=== PATIENT | female | born 1945 | race Caucasian/White ===

== ENCOUNTER 2023-07-30 19:29 | Emergency (ER) | payer MEDICARE, MEDICAID, SELFPAY ==
--- NOTE | ~2023-07-30 | XR_ITS ---
EXAMINATION: XR CHEST CLINICAL INFORMATION: Shortness of breath. COMPARISON: None available. TECHNIQUE: PA view of the chest was obtained. FINDINGS: Normal heart size. No focal airspace opacities, pleural effusion or pneumothorax. No acute osseous findings. Visualized upper abdomen is within normal limits. XR/XR chest 1V IMPRESSION: No acute cardiopulmonary findings.
[2023-07-30 19:33] VITALS: BP 190/83; PULSE 81; RESP 18; TEMP 36.5; O2SAT 99; BMI 22.2
--- NOTE | 2023-07-30 19:36 | ECG_ITS ---
Test Reason : SOB Blood Pressure : / mmHG Vent. Rate : 073 BPM Atrial Rate : 073 BPM P-R Int : 154 ms QRS Dur : 076 ms QT Int : 374 ms P-R-T Axes : 046 021 045 degrees QTc Int : 412 ms Normal sinus rhythm Nonspecific ST abnormality Abnormal ECG When compared with ECG of 02-SEP-2004 06:16, ST now depressed in Inferior leads Referred By: Wes Bolden Electronically Signed By:KIRILL MONTOYA MD
--- NOTE | 2023-07-30 19:38 | ED.GENADULT ---
HPI - General Adult General Chief complaint: Dyspnea Stated complaint: labored breathing/lwr back pain History of Present Illness HPI narrative: Left without completion of treatment by ED provider. Related Data Allergies Allergy/AdvReac Type Severity Reaction Status Date / Time erythromycin base Allergy Unknown RASH Unverified 02/25/20 14:54 [ERYTHROMYCIN BASE] Penicillins [PENICILLINS] Allergy Unknown RASH Unverified 02/25/20 14:54 PMF Social History Social History Advance Directives: No Advance Directives Information Provided: No Physical Exam ED Vital Signs: Vital Signs - 24 hr 07/30/23 19:33 Temperature 97.7 F Pulse Rate 81 Respiratory Rate 18 Blood Pressure 190/83 H Pulse Oximetry 99 Oxygen Delivery Method Room Air BMI result Body Mass Index 22.2 Course Course Course Narrative: RME: 78 yold female presents to the ED for SOB since saturday with diarrhea and bodyaches. Patient states her great grandchildren had RSV and flu. Patient lungs are clear. O2 saturation respiratory rate normal. Lungs are clear. Lower extremities negative for swelling or pitting edema or calf pain. X-ray labs are ordered. EkG Ordered Medical Decision Making Lab Data 07/30/23 20:04 07/30/23 20:04 Labs: Lab Results 07/30/23 Range/Units 20:04 WBC 3.9 L (4.8-10.8) X10*3/uL RBC 4.61 (4.20-5.50) X10*6/uL Hgb 14.6 (12.0-16.0) g/dl Hct 44.1 (37.0-47.0) % MCV 95.7 (80.0-98.0) fL MCH 31.7 (27.0-33.0) pg MCHC 33.1 (31.0-35.0) g/dl RDW 12.7 (11.0-16.0) % Plt Count 150 L (160-400) X10*3/uL MPV 9.5 (9.4-12.3) fL Immature Gran % (Auto) 0.3 (0.0-0.4) % Neut % (Auto) 51.5 (45-73) % Lymph % (Auto) 33.5 (20-40) % [place] % (Auto) 12.9 H (2-11) % Eos % (Auto) 1.3 (0-4) % Baso % (Auto) 0.5 (0-2) % Lymph # (Auto) 1.3 (1.2-4.9) X10*3/uL [place] # (Auto) 0.5 (0.1-1.2) X10*3/uL Eos # (Auto) 0.1 (0.0-0.4) X10*3/uL Baso # (Auto) 0.0 (0.0-0.2) X10*3/uL Abs Immat Gran (auto) 0.01 (0.00-0.03) X10*3/uL Absolute Neuts (auto) 2.0 (2.0-8.3) x10*3/uL Absolute Nucleated RBC 0.000 (0.0-0.012) X10*3/uL Nucleated RBC % (auto) 0.0 (0.0-0.2) /100WBC PT 12.0 (11.1-13.3) SEC INR 1.0 (0.9-1.1) APTT 34.9 (26.0-36.8) SEC Sodium 145 (135-145) mmol/L Potassium 3.6 (3.3-5.1) mmol/L Chloride 106 (96-108) mmol/L Carbon Dioxide 27 (22-29) mmol/L Anion Gap 16 (12-20) BUN 18 H (9-16) mg/dL Creatinine 0.76 (0.5-1.4) mg/dL Estim Creat Clear Calc 50.9 Estimated GFR > 60 Random Glucose 92 (60-115) mg/dL Calcium 9.5 (8.4-10.2) mg/dL Total Bilirubin 0.6 (0.0-1.0) mg/dL AST 27 (5-31) U/L ALT 15 (0-31) U/L Alkaline Phosphatase 58 (39-117) U/L Troponin I High Sens < 2.7 (<3.5-17.0) ng/L B-Natriuretic Peptide 44 (<100) pg/mL Total Protein 7.1 (6.5-8.0) g/dL Albumin 4.3 (3.5-5.0) g/dL Influenza Type A (PCR) NEGATIVE (Negative) Influenza Type B (PCR) NEGATIVE (Negative) RSV RNA Qual (PCR) NEGATIVE (Negative) SARS-CoV-2 RNA (RT-PCR) NEGATIVE (Negative) Discharge Plan Discharge Clinical Impression: Dyspnea Patient Disposition: Left W/O Completing Treatment Discharge Date/Time: 07/31/23 01:22
--- NOTE | 2023-07-30 19:43 | MHC.EDTECH ---
Unable to do EKG right away they took patient to x-ray
[2023-07-30 20:12] LABS: Basophils Percent Auto 0.5 % (0-2); Eosinophils Absolute Auto 0.1 X10*3/uL (0.0-0.4); Eosinophils Percent Auto 1.3 % (0-4); Hematocrit 44.1 % (37.0-47.0); Hemoglobin 14.6 g/dl (12.0-16.0); Imm Gran Abs Auto 0.01 X10*3/uL (0.00-0.03); Imm Gran Pct Auto 0.3 % (0.0-0.4); Lymphocytes Absolute Auto 1.3 X10*3/uL (1.2-4.9); Lymphocytes Percent Auto 33.5 % (20-40); MANUAL DIFF FLAG NO; Mean Corpuscular HGB Conc 33.1 g/dl (31.0-35.0); Mean Corpuscular Hemoglobin 31.7 pg (27.0-33.0); Mean Corpuscular Volume 95.7 fL (80.0-98.0); Mean Platelet Volume 9.5 fL (9.4-12.3); Monocytes Absolute Auto 0.5 X10*3/uL (0.1-1.2); Monocytes Percent Auto 12.9 % (2-11); Neutrophils Percent Auto 51.5 % (45-73); Platelet Count 150 X10*3/uL (160-400); Red Blood Count 4.61 X10*6/uL (4.20-5.50); Red Cell Distribution Width 12.7 % (11.0-16.0); White Blood Count 3.9 X10*3/uL (4.8-10.8)
[2023-07-30 20:22] LABS: Partial Thromboplastin Time 34.9 SEC (26.0-36.8)
[2023-07-30 20:30] LABS: Alanine Aminotransferase 15 U/L (0-31); Albumin Level 4.3 g/dL (3.5-5.0); Alkaline Phosphatase 58 U/L (39-117); Anion Gap 16 (12-20); Aspartate Amino Transferase 27 U/L (5-31); Bilirubin Total 0.6 mg/dL (0.0-1.0); Blood Urea Nitrogen 18 mg/dL (9-16); Calcium 9.5 mg/dL (8.4-10.2); Carbon Dioxide 27 mmol/L (22-29); Chloride 106 mmol/L (96-108); Creatinine Clr Calc Pharmacy 50.9; Estimated Glomerular Filt Rate > 60; Glucose Random 92 mg/dL (60-115); Potassium 3.6 mmol/L (3.3-5.1); Sodium 145 mmol/L (135-145); Total Protein 7.1 g/dL (6.5-8.0)
[2023-07-30 20:36] LABS: B Type Natriuretic Peptide 44 pg/mL (<100)
[2023-07-30 20:38] LABS: Troponin-I High Sensitivity < 2.7 ng/L (<3.5-17.0)
[2023-07-30 20:52] LABS: Influenza A PCR NEGATIVE (Negative); Influenza B PCR NEGATIVE (Negative); Resp Syncy Virus RNA Qual PCR NEGATIVE (Negative); SARS COV2 PCR INHOUSE NEGATIVE (Negative)
== END 2023-07-31 01:22 | disposition left against medical advice (07) ==
PROVIDERS: Physician Assistant; Emergency Provider Emergency Medicine
DX: R06.00 Dyspnea, unspecified (principal); R94.31 Abnormal electrocardiogram [ECG] [EKG]; M54.50 Low back pain, unspecified; Z20.822 Contact with and (suspected) exposure to COVID-19; Z11.52 Encounter for screening for COVID-19; Z79.899 Other long term (current) drug therapy
CPT/HCPCS: 0241U; 71045; 80053; 83880; 84484; 85025; 85610; 85730; 93005; 99283

== ENCOUNTER → 2023-07-30 19:36 | Outpatient (BNV) | payer MEDICARE, MEDICAID, SELFPAY | PROVIDERS: Emergency Provider Emergency Medicine; Visit Provider Internal Medicine Cardiovascular Disease | DX: R94.31 Abnormal electrocardiogram [ECG] [EKG] (principal) | CPT/HCPCS: 93010 ==

== ENCOUNTER 2023-11-12 08:48 | Outpatient (AMB) | payer MEDICARE, MEDICAID, SELFPAY ==
[2023-11-12 09:49] VITALS: BP 130/80; PULSE 69; TEMP 36.6; O2SAT 97; BMI 22.3
--- NOTE | 2023-11-12 09:49 | AM.OFFWIN_ITS ---
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 Allergies erythromycin base [ERYTHROMYCIN BASE] Allergy (Unknown, Verified 11/12/23 09:49) RASH Penicillins [PENICILLINS] Allergy (Unknown, Verified 11/12/23 09:49) RASH Do you need a note to return to daycare/school/sports/work: No HPI HPI Comments History of Present Illness Details This is an 78-year-old female presenting for evaluation of a right foot injury. Patient was at [employer] preparing food when a very large can of green beans fell from counter height onto her right foot. Patient has a laceration on her right 2nd toe. Patient is unaware of her most recent tetanus immunization. Review of Systems Const All systems reviewed & are unremarkable except as noted in HPI and below Eyes Reports no additional complaints ENT Reports no additional complaints Card Reports no additional complaints GI Reports no additional complaints Reports no additional complaints Musc Reports no additional complaints Skin/Breast Reports as per HPI and Reports bleeding lesions Neuro Reports no additional complaints Psych Reports no additional complaints Endo Reports no additional complaints Santi/Lymph Reports no additional complaints Aller/Immun Reports no additional complaints Physical Exam Vital Signs: Last Vital Signs Temp 97.9 F 11/12/23 09:49 Pulse 69 11/12/23 09:49 BP 130/80 11/12/23 09:49 Pulse Ox 97 11/12/23 09:49 Oxygen Delivery Method Room Air 11/12/23 09:49 BMI result Body Mass Index 22.3 Const General: cooperative, healthy appearing, comfortable, no acute distress, well developed, alert, awake and Physically active Nutritional Appearance: average body habitus Orientation/consciousness: patient oriented x3 Limitations: no limitations Skin Other: 1.5cm crescent shaped flap laceration adjacent to the nailbed of the right 2nd toe; no involvement of the nail. Neuro General: patient oriented x3 Extrem Right lower extremity: foot (moving all digits of R. foot without limitation) Details: normal capillary refill (not possible to assess secondary to nail mosotho) and tenderness (right 2nd toe, distal phalanx) Psych Appearance: grossly normal Mental Status: mental status grossly normal Insight: Good insight present (Psych) Judgement: Good judgement present (Psych) Office Procedures Laceration Repair Details: laceration right 2nd toe distal phalanx; no evidence of a retained foreign body Laceration repair performed by: Amita Kerns Explained risks and benefits to parent: Yes Informed consent given: Yes Consent signed: No Location: Right 2nd toe Length: <2cm Sedation: No Anesthesia: 2% lidocaine Irrigation: saline Preparation: betadine Wound exploration: none (no foreign body noted, no involvement of the nail of the R. 2nd toe) Deep closure: No Skin closure: nylon Technique: A total of 7 simple interrupted 6-0 Prolene sutures are placed Topical treatment: triple antibiotic Tetanus toxoid ordered: Yes Patient tolerated procedure: well [place] [id number] Repair <2.5cm Procedure code (CPT) selection complete Results Reviewed Results Reviewed: No acute fracture noted in the right 2nd toe. Assessment & Plan Assessment & Plan (1) Laceration of toe, right: Code(s): S91.119A - Laceration without foreign body of unspecified toe without damage to nail, initial encounter Plan: Update tetanus immunization, imaging of the right foot, sutures Plan Patient has an appointment on November 18 with her surgeon to have previously placed sutures removed from her leg and she will have sutures removed at that time from her right 2nd toe. Suture care is reviewed with the patient. Tylenol for discomfort. No acute fractures noted on imaging. Orders: Orders TDaP Immunization 11/12/23 S91.119A - Laceration without foreign body of unspecified toe without damage to nail, initial encounter Coding Level of Care Code New Pt Level 4 (93970) Diagnoses Laceration of toe, right S91.119A Time Spent (min) 45
== END 2023-11-12 11:19 | disposition home or self-care (01) ==
PROVIDERS: Visit Provider Physician Assistant
DX: S91.114A Laceration without foreign body of right lesser toe(s) without damage to nail, initial encounter (principal)
CPT/HCPCS: 12001; 90471; 90715; 99204

== ENCOUNTER 2023-11-12 10:49 | Outpatient (REF) | payer MEDICARE, SELFPAY ==
--- NOTE | ~2023-11-12 | XR_ITS ---
EXAMINATION: XR FOOT, RIGHT CLINICAL INFORMATION: Laceration without foreign body of unspecified toe. COMPARISON: None available. TECHNIQUE: AP, lateral, and oblique views of the right foot. FINDINGS: The bones are diffusely demineralized. Moderate degenerative changes in the first metatarsophalangeal joint with joint space narrowing and hypertrophic change. Metatarsus adductus, hallux valgus with medial soft tissue bunion. Tiny plantar calcaneal spur. Vascular calcifications. Radiopaque marker placed by technologist to indicate the area of concern as indicated by the patient at the tip of the second toe. No displaced fracture of the second toe appreciated. Mild degenerative changes in the IP joints of the toes. XR/XR foot RT min 3V IMPRESSION: Mild degenerative changes in the IP joints of the toes. No displaced fracture of the second toe appreciated. No radiopaque foreign body appreciated in the area of concern indicated at the tip of the second toe. This study was presented today, November 12, 2023, for interpretation. Stat results provided at this time as requested by referring provider.
== END 2023-11-12 10:50 | disposition home or self-care (01) ==
LOC: HO.HMGCX 10:49
PROVIDERS: PCP Internal Medicine; Visit Provider Physician Assistant
DX: S91.111D Laceration without foreign body of right great toe without damage to nail, subsequent encounter (principal)
CPT/HCPCS: 73630

== ENCOUNTER 2023-11-20 11:25 | Outpatient (AMB) | payer MEDICARE, SELFPAY ==
[2023-11-20 11:28] VITALS: BP 126/60; PULSE 75; TEMP 36.5; O2SAT 98; BMI 22.5
--- NOTE | 2023-11-20 11:28 | MHC.OFFWIV ---
Intake Vital Signs 11/20/23 11:28 Height 5 ft 4 in Weight 131 lb BMI 22.5 BP 126/60 Blood Pressure Location Lt brachial Position Sitting Pulse 75 Pulse Source Pulse Oximeter Temp 97.7 F Temp Source Temporal Artery Scan Pulse Oximetry (%) 98 Oxygen Delivery Method Room Air Intake Visit Reasons: EP removal of stitches Intake Note: pt is here today for stitches removal Patient Tobacco Use Status: Never used Tobacco Allergies erythromycin base [ERYTHROMYCIN BASE] Allergy (Unknown, Verified 11/20/23 11:32) RASH Penicillins [PENICILLINS] Allergy (Unknown, Verified 11/20/23 11:32) RASH Do you need a note to return to daycare/school/sports/work: No HPI HPI Comments History of Present Illness Details Patient seen on 11/11 for laceration to R 2nd digit on foot Negative xray of foot She has some yellow drainage from area No pain scale given No fever or chills Reports for suture removal and wound check No other complaints PFSH Social History Patient Tobacco Use Status: Never used Tobacco Review of Systems Const Denies chills and Denies fever(s) Skin/Breast Reports erythema and Reports wounds Physical Exam Vital Signs: Last Vital Signs Temp 97.7 F 11/20/23 11:28 Pulse 75 11/20/23 11:28 BP 126/60 11/20/23 11:28 Pulse Ox 98 11/20/23 11:28 Oxygen Delivery Method Room Air 11/20/23 11:28 BMI result Body Mass Index 22.5 General: Non-toxic, NAD. Speaking full sentences. Skin: Warm dry throughout. R 2nd digit: + [address] No wound dehiscence. + surrounding erythema and small amount of yellow discharge cleaned from wound. Minimal tenderness to palpation. Nail intact to nailbed. Eye: EOMI Respiratory: No respiratory distress MSK: + ROM lower extremities. Full ROM extremities. Neurology: A/O No aphasia or facial droop. Psych: Good mood and affect Assessment & Plan Assessment & Plan (1) Visit for suture removal: Code(s): Z48.02 - Encounter for removal of sutures Plan: Verbal consent obtained. Tweezers and scissors used to remove the most distal 4 sutures. I left 3 remaining sutures because wound not completely healed and concerned for wound dehiscence. Pt tolerated well and had no questions. Topical bactroban and bandage applied (2) Cellulitis, toe: Code(s): L03.039 - Cellulitis of unspecified toe Qualifiers: Laterality: right Qualified Code(s): L03.031 - Cellulitis of right toe Plan: + erythema and edema to R 2nd digit around wound. Pt would benefit from doxy to ensure better wound healing. Will return on Saturday afternoon/Saturday for recheck and remainign suture removal All questions answered at time of discharge Medications: New doxycycline hyclate stay out of the sun while on medication 100 mg PO BID 14 caps 0RF Coding Level of Care Code Est Pt Level 3 (43954) Diagnoses Visit for suture removal Z48.02 Cellulitis of toe of right foot L03.031 Laterality: right
== END 2023-11-20 12:49 | disposition home or self-care (01) ==
PROVIDERS: PCP Internal Medicine; Visit Provider Physician Assistant
DX: L03.031 Cellulitis of right toe (principal); Z48.02 Encounter for removal of sutures
CPT/HCPCS: 15853; 99213

== ENCOUNTER 2023-11-25 11:24 | Outpatient (AMB) | payer MEDICARE, SELFPAY ==
[2023-11-25 11:37] VITALS: BP 120/76; PULSE 79; TEMP 36.6; O2SAT 99; BMI 22.8
--- NOTE | 2023-11-25 11:37 | AM.OFFWIN_ITS ---
Intake Vital Signs 11/25/23 11:37 Height 5 ft 4 in Weight 133 lb BMI 22.8 BP 120/76 Blood Pressure Location Lt brachial Position Sitting Pulse 79 Pulse Source Pulse Oximeter Temp 97.8 F Temp Source Temporal Artery Scan Pulse Oximetry (%) 99 Oxygen Delivery Method Room Air Intake Visit Reasons: EP removal of stitches Intake Note: pt is here today for stitches removal Patient Tobacco Use Status: Former Tobacco user Allergies erythromycin base [ERYTHROMYCIN BASE] Allergy (Unknown, Verified 11/25/23 11:41) RASH Penicillins [PENICILLINS] Allergy (Unknown, Verified 11/25/23 11:41) RASH Do you need a note to return to daycare/school/sports/work: No HPI HPI Comments History of Present Illness Details Patient presents to the walk-in today for sick visit Seen on 11/11 for laceration to R 2nd digit on foot Returns for wound check and suture removal 11/19 4 sutures were removed, she was advised to return today for removal of the remaining 3 Denies fevers, pain, discharge from the area [facility] Social History Patient Tobacco Use Status: Former Tobacco user Review of Systems Const All systems reviewed & are unremarkable except as noted in HPI and below Physical Exam Vital Signs: Last Vital Signs Temp 97.8 F 11/25/23 11:37 Pulse 79 11/25/23 11:37 BP 120/76 11/25/23 11:37 Pulse Ox 99 11/25/23 11:37 Oxygen Delivery Method Room Air 11/25/23 11:37 BMI result Body Mass Index 22.8 General: awake, alert, oriented. Answers questions appropriately. Fully engaged in examination. Skin: Warm dry throughout. Right 2nd toe: [address] Nail intact to nailbed. No drainage, lymphangitis, bleeding. No signs local or systemic infection Eye: EOMI HEENT: Normocephalic. Hearing intact. Cardiac: External chest normal in appearance. Respiratory: No cough, audible wheezing or stridor. Abdomen: without gross distension. MS: No obvious swelling or deformities. Neurological: Oriented to person, place, time and situation. Thought process intact. No gait abnormalities appreciated. Psychiatric: Appropriate mood and affect. Good judgment and insight. Assessment & Plan Assessment & Plan (1) Visit for suture removal: Code(s): Rosa Maria48.02 - Encounter for removal of sutures Plan Remaining 3 sutures were removed without difficulty. Patient tolerated well No signs of local or systemic infection Wound care instructions provided Follow up with PCP or return here for any new or worsening symptoms Coding Level of Care Code Est Pt Level 3 (08099) Diagnoses Visit for suture removal Z48.02
== END 2023-11-25 12:32 | disposition home or self-care (01) ==
PROVIDERS: PCP Internal Medicine; Visit Provider Registered Nurse Emergency
DX: Z48.02 Encounter for removal of sutures (principal)
CPT/HCPCS: 15853; 99213

== ENCOUNTER 2024-01-18 12:52 | Outpatient (AMB) | payer MEDICARE, SELFPAY ==
--- NOTE | 2024-01-18 12:57 | AM.OFFWIN_ITS ---
Intake Vital Signs 01/18/24 13:05 Height 5 ft 4 in BP 130/74 Blood Pressure Location Rt brachial Position Sitting Pulse 85 Pulse Source Pulse Oximeter Temp 98.0 F Temp Source Temporal Artery Scan Pulse Oximetry (%) 100 Oxygen Delivery Method Room Air Intake Visit Reasons: EP cough 5 days Patient Tobacco Use Status: Former Tobacco user Allergies erythromycin base [ERYTHROMYCIN BASE] Allergy (Unknown, Verified 11/25/23 11:41) RASH Penicillins [PENICILLINS] Allergy (Unknown, Verified 11/25/23 11:41) RASH HPI EP cough 5 days HPI Details Patient is an 78-year-old female comes to the walk-in clinic complaining of persistent cough for the last 5 days, which is worse especially at night, with some mild throat discomfort. She denies fever chills, headache, dizziness or vertigo, weakness, myalgias or malaise, nausea vomiting or diarrhea, significant sore throat, loss of sense of taste or smell, ear pain decreased hearing, shortness breath, chest pain, or other significant associated symptoms. She denies underlying immuno compromising issues. She reports no history of respiratory issues. She did travel recently. No home COVID testing done. [facility] Social History Patient Tobacco Use Status: Former Tobacco user Review of Systems Const All systems reviewed & are unremarkable except as noted in HPI and below Physical Exam Vital Signs: Last Vital Signs Temp 98.0 F 01/18/24 13:05 Pulse 85 01/18/24 13:05 BP 130/74 01/18/24 13:05 Pulse Ox 100 01/18/24 13:05 Oxygen Delivery Method Room Air 01/18/24 13:05 Const General: cooperative, healthy appearing, comfortable, no acute distress, alert, awake, Physically active and well groomed; No anxious, diaphoretic, ill appearing, intoxicated appearing, poor hygiene or tired appearing Nutritional Appearance: average body habitus Orientation/consciousness: oriented to person Limitations: no limitations HEENT Head: Yes normal to inspection, Yes normocephalic and Yes atraumatic Ears: hearing grossly normal bilaterally, external ears normal, EAC's normal and TM abnormal dull, wth effusion, with fluid behind the TM and with loss of landmarks; not bulging, not bullous, not erythematous, not perforated, not retracted and not scarred General nose exam: Normal external nose present and Abnormal mucous membranes and turbinates present Face and sinus: Yes normal facial exam, Yes sinuses nontender and Yes face symmetric Mouth: lip normal, tongue normal and moist mucous membranes abnormal Throat: Yes uvula midline, No peritonsillar mass, Yes postnasal drainage, No uvular edema and No cobblestoning Eyes General: appearance normal, both eyes and all related structures Neck Neck: Yes no lymphadenopathy Chest Chest palpation & inspection: normal palpation of entire chest wall Resp Effort & Inspection: normal respiratory effort, able to speak in complete sentences, no audible wheezes, no cough, no grunting, not labored, no nasal flaring, no retractions and symmetric chest movement Auscultation: clear to auscultation bilaterally, no crackles, no rales, no rhonchi, no wheezes, lung sounds not diminished and No rub present Cardio Rate: regular rate Rhythm: regular rhythm Skin Other: Good color, warm and dry Neuro General: oriented to person Psych Appearance: grossly normal Mental Status: mental status grossly normal Speech and movement: Normal speech and movement present Affect: normal affect Attitude: cooperative Thought process: Normal thought process present Insight: Good insight present (Psych) Judgement: Good judgement present (Psych) Assessment & Plan Assessment & Plan (1) Serous otitis media: Code(s): H65.90 - Unspecified nonsuppurative otitis media, unspecified ear Qualifiers: Chronicity: acute Laterality: bilateral Recurrence: non-recurrent Qualified Code(s): H65.03 - Acute serous otitis media, bilateral Plan: Patient with apparent serous otitis media, causing postnasal drip, and likely the source of her persistent cough, which is especially symptomatic when lying supine at night. As she denies significant allergy history, I think this is likely viral, and I tested her for flu COVID and RSV, pending results. She does not have any pain to the ears, and so I will not treat this as acute otitis media, but rather as likely upper respiratory infection and will trial benzonatate capsules. She can also use [id number] Flonase to help open the Eustachian tubes and assist with the drainage. I told her that this might increase the postnasal drip briefly but should allow for better evacuation of the inner ear fluid. I did also write her for a course of doxycycline as empiric therapy for otitis media, in case symptoms worsen in regards to the ear pain, fever or chills, or other bacterial symptoms. She will follow up if symptoms persist or worsen. She also knows to go to the emergency department with any worrisome symptoms. Orders: Orders SARS-CoV2/FLU/RSV 01/18/24 R09.89 - Other specified symptoms and signs involving the circulatory and respiratory systems Medications: New doxycycline hyclate 100 mg PO BID 7 days 14 tabs 0RF benzonatate 200 mg PO BID-TID PRN 30 caps 0RF cough Coding Level of Care Code Est Pt Level 4 (44600) Diagnoses Non-recurrent acute serous otitis media of both ears H65.03 Chronicity: acute Laterality: bilateral Recurrence: non-recurrent
[2024-01-18 13:05] VITALS: BP 130/74; PULSE 85; TEMP 36.7; O2SAT 100
== END 2024-01-18 14:53 | disposition home or self-care (01) ==
PROVIDERS: PCP Internal Medicine; Visit Provider Physician Assistant Medical
DX: H65.03 Acute serous otitis media, bilateral (principal)
CPT/HCPCS: 99214

== ENCOUNTER 2024-01-18 13:55 | Outpatient (REF) | payer MEDICARE, SELFPAY ==
[2024-01-18 16:48] LABS: Influenza A PCR NEGATIVE (Negative); Influenza B PCR NEGATIVE (Negative); Resp Syncy Virus RNA Qual PCR NEGATIVE (Negative); SARS COV2 PCR INHOUSE NEGATIVE (Negative)
== END 2024-01-18 13:56 | disposition home or self-care (01) ==
LOC: HO.LNP 13:55
PROVIDERS: Visit Provider Physician Assistant Medical
DX: R09.89 Other specified symptoms and signs involving the circulatory and respiratory systems (principal)
CPT/HCPCS: 0241U

== ENCOUNTER 2024-04-18 11:44 | Outpatient (AMB) | payer MEDICARE, SELFPAY ==
--- NOTE | 2024-04-18 11:49 | MHC.OFFWIV ---
Intake Vital Signs 04/18/24 11:55 Height 5 ft 4 in Weight 137 lb BMI 23.5 BP 142/60 H Blood Pressure Location Lt brachial Position Sitting Pulse 79 Pulse Source Pulse Oximeter Temp 97.5 F Temp Source Oral Pulse Oximetry (%) 100 Oxygen Delivery Method Room Air Intake Visit Reasons: EP-B/L hands Rash Intake Note: Pt is here today c/o bilateral hands rash and itchy: x1.5 mo. Patient Tobacco Use Status: Former Tobacco user Allergies erythromycin base [ERYTHROMYCIN BASE] Allergy (Unknown, Verified 04/18/24 12:11) RASH Penicillins [PENICILLINS] Allergy (Unknown, Verified 04/18/24 12:11) RASH Medication List - Last Reconciled 04/18/24 by Carmen Lim, VP OF PRODUCT- citalopram 40 mg PO DAILY lisinopril 20 mg PO DAILY trazodone 100 mg PO BEDTIME PRN HPI HPI Comments History of Present Illness Details Pleasant 78-year-old female here today with complaints of an itchy rash on bilateral hands that developed a few days ago. Reports that she was working out in the [employer], wearing gloves which were new, it was shortly after that she developed a symptom this. She has not used those gloves since. The itching has become worse since onset. To treat at home she did use 1 topical hand cream which was new to her an unmedicated. This seemed to worsen her symptoms. She denies anything else new in regards to exposures. Exam Dorsum of bilat hands is an erythematous dermatitis with secondary excoriations, without signs of infection starting at the knuckles and stopping at the wrists bilat Plan Treat with topical steroid cream twice per day. Avoid any new contacts or known irritants. If the rash continues or does not improve advised to follow up with Dermatology. [facility], [facility] Social History Patient Tobacco Use Status: Former Tobacco user Physical Exam Vital Signs: Last Vital Signs Temp 97.5 F 04/18/24 11:55 Pulse 79 04/18/24 11:55 BP 142/60 H 04/18/24 11:55 Pulse Ox 100 04/18/24 11:55 Oxygen Delivery Method Room Air 04/18/24 11:55 BMI result Body Mass Index 23.5 Assessment & Plan Assessment & Plan (1) Allergic dermatitis: Code(s): L23.9 - Allergic contact dermatitis, unspecified cause Plan: . Medications: New betamethasone dipropionate 0.05% 1 appl topical BID PRN 45 grams 0RF skin irritation Coding Level of Care Code Est Pt Level 3 (22053) Diagnoses Allergic dermatitis L23.9
[2024-04-18 11:55] VITALS: BP 142/60; PULSE 79; TEMP 36.4; O2SAT 100; BMI 23.5
== END 2024-04-18 12:27 | disposition home or self-care (01) ==
PROVIDERS: PCP Internal Medicine; Visit Provider Nurse Practitioner Family
DX: L23.9 Allergic contact dermatitis, unspecified cause (principal)

== ENCOUNTER → 2024-04-18 11:44 | Outpatient (BNVA) | payer MEDICARE, SELFPAY | PROVIDERS: PCP Internal Medicine | DX: L23.9 Allergic contact dermatitis, unspecified cause (principal) | CPT/HCPCS: 99212 ==

== ENCOUNTER 2025-01-04 11:35 | Outpatient (AMB) | payer MEDICARE, SELFPAY ==
[2025-01-04 12:42] VITALS: BP 120/66; PULSE 72; TEMP 37.2; O2SAT 96; BMI 23.3
--- NOTE | 2025-01-04 12:42 | MHC.OFFWIV ---
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 - The cough has persisted for at least a month, initially presenting as a cold with ongoing symptoms of congestion and intermittent coughing. Denies ear pain, sinus pain, headaches. - The patient denies fever but reports fatigue and shortness of breath upon exertion, such as climbing stairs. - Past medical history includes smoking cessation in 1984, with no known history of asthma or COPD. - The rash, described as itchy and persistent, is located on the upper arms and left flank, with no clear exposure to allergens like poison [place] or new detergents, creams or lotions. - The patient has not tried any antihistamines or topical treatments prior to this visit. Physical Exam General: Cooperative, healthy appearing, comfortable and no acute distress Orientation/consciousness: Patient oriented x3 Limitations: No limitations Head: Normal to inspection Ears: Hearing grossly normal bilaterally, external ears normal and TM's normal bilaterally Nose: Normal external nose present, Normal nares present and No nasal discharge present Face and sinus: Normal facial exam and Yes sinuses nontender Mouth: Normal oral and palatal mucosa present and moist mucous membranes Throat: Yes tonsils normal, Yes uvula midline. Posterior oropharynx erythema, no exudates Eyes: Appearance normal, both eyes and all related structures Neck: Normal visual inspection, full ROM Respiratory: Clear to auscultation bilaterally. Normal respiratory effort, able to speak in complete sentences, actively coughing, no respiratory distress, not tachypneic, no tripod positioning and no use of accessory muscles Cardiovascular: Regular rate and rhythm. Normal S1 and S2 Skin: mild maculopapular rash 4-5 spots on bilateral arms and 2-3 spots on left lower flank, no signs of infection, no warmth Neuro: Patient oriented x3 Extremities: Normal to inspection and Yes no clubbing, cyanosis or edema [facility] Social History Patient Tobacco Use Status: Former Tobacco user Patient : No Review of Systems Const All systems reviewed & are unremarkable except as noted in HPI and below Physical Exam Vital Signs: Last Vital Signs Temp 98.9 F 01/04/25 12:42 Pulse 72 01/04/25 12:42 BP 120/66 01/04/25 12:42 Pulse Ox 96 01/04/25 12:42 Oxygen Delivery Method Room Air 01/04/25 12:42 BMI result Body Mass Index 23.3 Assessment & Plan Assessment & Plan (1) URI, acute: Code(s): J06.9 - Acute upper respiratory infection, unspecified Plan: Plan - VSS, pt well appearing and PE remarkable for mild rash, doesn't appear to be a viral rash, morphology more consistent with a contact dermatitis, completely unrelated to her upper respiratory infection. - Prescribe doxycycline for five days to address the persistent cough, with caution advised regarding sun exposure due to potential photosensitivity. - Recommend the use of an inhaler for episodes of shortness of breath, with instructions to use two puffs every four to six hours as needed. - Prescribe Triamcinolone cream for the rash, with instructions to apply sparingly due to its potency. - Suggest taking Benadryl at night to alleviate itching and improve sleep quality. Recommended she not take her trazodone if she is going to take Benadryl. Patient states she understands and agrees with this plan. - Provide benzonatate Tessalon Pearls for nighttime cough suppression to improve sleep. Patient was informed and verbally consented to the use of an ambient scribe for clinic note documentation during this visit (2) Contact dermatitis: Code(s): L25.9 - Unspecified contact dermatitis, unspecified cause Qualifiers: Contact dermatitis type: allergic Contact dermatitis trigger: unspecified trigger Qualified Code(s): L23.9 - Allergic contact dermatitis, unspecified cause Plan: as above Medications: New albuterol sulfate 90 mcg/actuation 2 puffs inhalation Q6H PRN 8.5 grams 0RF shortness of breath or wheezing or cough triamcinolone acetonide 0.5% do not exceed use greater than 14 days 1 appl topical BID 15 grams 1RF doxycycline hyclate 100 mg PO BID 10 tabs 0RF benzonatate 200 mg PO BEDTIME PRN 10 caps 0RF cough Coding Level of Care Code New Pt Level 4 (87446) Diagnoses URI, acute J06.9 Allergic contact dermatitis, unspecified trigger L23.9 Contact dermatitis type: allergic Contact dermatitis trigger: unspecified trigger
== END 2025-01-04 13:39 | disposition home or self-care (01) ==
PROVIDERS: PCP Internal Medicine; Visit Provider Physician Assistant
DX: J06.9 Acute upper respiratory infection, unspecified (principal); L23.9 Allergic contact dermatitis, unspecified cause

== ENCOUNTER → 2025-01-04 11:35 | Outpatient (BNVA) | payer MEDICARE, SELFPAY | PROVIDERS: PCP Internal Medicine; Visit Provider Physician Assistant | DX: J06.9 Acute upper respiratory infection, unspecified (principal); L23.9 Allergic contact dermatitis, unspecified cause | CPT/HCPCS: 99202 ==